=== PATIENT | male | born 1990 | race Caucasian/White ===

== ENCOUNTER 2017-06-01 20:41 | Emergency (ER) | payer BC ==
[2017-06-01 22:30] LABS: PLATELET COUNT 274 x10^3mcL (130-400); RED CELL DISTRIBUTION WIDTH 13.9 % (11.5-14.5)
[2017-06-01 22:33] LABS: CALCIUM 9.3 mg/dL (8.5-10.1); CARBON DIOXIDE 29.2 mmol/L (21-32); CHLORIDE SERUM 99 mmol/L (98-107); CREATININE SERUM 1.3 mg/dL (0.7-1.3); GFR1 > 60 mL/min; GLUCOSE SERUM 154 mg/dL (74-106); POTASSIUM SERUM 3.5 mmol/L (3.5-5.1); SODIUM SERUM 139 mmol/L (136-145)
[2017-06-01 22:38] LABS: ALBUMIN 4.8 g/dL (3.4-5.0); ALKALINE PHOSPHATASE 98 U/L (46-116); ALT/SGPT 52 U/L (16-63); AST/SGOT 31 U/L (15-37); BILIRUBIN TOTAL 0.6 mg/dL (0.20-1.00)
[2017-06-01 22:42] LABS: TOTAL PROTEIN, SERUM 8.3 g/dL (6.4-8.2)
[2017-06-01 22:59] LABS: BAND NEUTROPHIL 8 % (0-10); MONOCYTE 6 % (0-7); SEGMENTED NEUTROPHILS 80 % (37-75)
[2017-06-01 23:00] LABS: BASOPHIL 0 % (0-2); PLATELET MORPHOLOGY PLATELETS NORMAL; rbc morphology (normal/abnorm) NORMAL (NORMAL)
[2017-06-02] VITALS: BP 175/107
[2017-06-02] MEDS ORDERED: IBUPROFEN400 MG (10:50)
[2017-06-02] MEDS ORDERED: NORCO1 TA2 (10:50)
[2017-06-02] MEDS ORDERED: ZOF4 (10:50)
== END 2017-06-02 | disposition home or self-care (01) ==
LOC: ED 20:41
PROVIDERS: Emergency Medicine
DX: R11.2 Nausea with vomiting, unspecified (principal); I10 Essential (primary) hypertension
CPT/HCPCS: 83880; J1885; J2270; J2405; J3490

== ENCOUNTER 2017-06-02 09:48 | Emergency (ER) | payer OTHER ==
[~2017-06-02] VITALS: Ht 180.3 cm; Wt 68.0 kg
[2017-06-02] MEDS ORDERED: IBUPROFEN400 MG (10:50)
[2017-06-02] MEDS ORDERED: ZOF4 (10:50)
[2017-06-02] MEDS ORDERED: NORCO1 TA2 (10:50)
[2017-06-02 11:28] LABS: PLATELET COUNT 269 x10^3mcL (130-400); RED CELL DISTRIBUTION WIDTH 14.2 % (11.5-14.5)
[2017-06-02 11:35] LABS: CALCIUM 9.8 mg/dL (8.5-10.1); CHLORIDE SERUM 97 mmol/L (98-107); CREATININE SERUM 1.2 mg/dL (0.7-1.3); GFR1 > 60 mL/min; GLUCOSE SERUM 133 mg/dL (74-106); POTASSIUM SERUM 3.5 mmol/L (3.5-5.1); SODIUM SERUM 137 mmol/L (136-145)
[2017-06-02 11:40] LABS: ALBUMIN 4.9 g/dL (3.4-5.0); ALKALINE PHOSPHATASE 106 U/L (46-116); ALT/SGPT 53 U/L (16-63); AST/SGOT 32 U/L (15-37)
[2017-06-02 11:50] LABS: TOTAL PROTEIN, SERUM 8.7 g/dL (6.4-8.2)
[2017-06-02 12:10] VITALS: BP 186/121
[2017-06-02 12:23] LABS: BAND NEUTROPHIL 0 % (0-10); BASOPHIL 0 % (0-2); MONOCYTE 1 % (0-7); SEGMENTED NEUTROPHILS 98 % (37-75)
[2017-06-02 12:24] LABS: PLATELET MORPHOLOGY PLATELETS INCREASED; rbc morphology (normal/abnorm) NORMAL (NORMAL)
== END 2017-06-02 12:10 | disposition short-term general hospital (02) ==
LOC: ED 09:48
PROVIDERS: Emergency Medicine
DX: I61.9 Nontraumatic intracerebral hemorrhage, unspecified (principal); I10 Essential (primary) hypertension; F17.200 Nicotine dependence, unspecified, uncomplicated
CPT/HCPCS: 83880; G0480; J0360; J1885; J1953; J2150; J2270; J2405; J3490; J7040